=== PATIENT | male | born 1970 | race Caucasian/White ===

== ENCOUNTER 2018-05-20 15:25 | Inpatient (IN) | payer OTHER ==
--- NOTE | 2018-05-20 17:29 | GHP ---
POST ADMISSION PHYSICIAN EVALUATION AND REHABILITATION TREATMENT PLAN DATE OF ADMISSION: 05/20/2018 DATE OF EVALUATION: 05/20/2018 TIME OF EVALUATION: 1520. REFERRING FACILITY: [facility]. IMPAIRMENT GROUP: 2.1. DATE OF ONSET: 05/14/2018 REFERRING PHYSICIAN: Dr. Chavez. CONSULTING PHYSICIANS: There were none. REHABILITATION DIAGNOSES: Cognitive impairment and gait ataxia due to Wernicke encephalopathy. ETIOLOGIC DIAGNOSIS: Nontraumatic brain dysfunction. HISTORY OF PRESENT ILLNESS: This man was admitted to on 05/14/2018, with vision problems over several days, decreased upper extremity coordination, ataxic gait, and a 20 pounds weight loss. He has had a chronic alcohol use of 4-5 beers per day and 12 pack on the weekends. He was diagnosed with Wernicke's encephalopathy and hypokalemia. Additionally, he had elevated liver function tests. He was treated for alcohol withdrawal on the [place] protocol. He was treated with thiamine. He had improvement in his condition. There was urinary retention, which required straight catheterization on May 15, 2018. He was able to participate in rehabilitation therapies at the hospital and was appropriate for inpatient rehabilitation. STUDIES/LABORATORY IN THE HOSPITAL: An ammonia level was tested on 05/15/2018, and was normal at 20. Basic metabolic profile showed normal renal function and electrolytes throughout. There was hypokalemia early on in his stay. CBC was overall within normal limits, MCV was normal, platelet count was normal. Urine drug screen was negative for substances of abuse. Liver function tests on the day of admission showed elevated ALT and AST at 81 and 79. These improved somewhat by 05/16/2018, to 59 and 63. He had elevated direct bilirubin at 1.1 and total bilirubin at 2 on admission, and by 05/16/2018, these improved with direct bilirubin at 0.5 and total at 1.0. Magnesium level was normal. Phosphorus level was normal. Protime was normal at 14.6. TSH was normal at 3.24. Brain MRI showed signal abnormality involving bilateral medial thalami, periaqueductal greene matter and mammillary bodies, generalized brain volume loss greater than expected for age, and mild chronic white matter microangiopathic changes. PRECAUTIONS: He is a fall risk. ACTIVE COMORBIDITIES: He has no active tier 1, tier 2, or tier 3 comorbidities. PAST MEDICAL HISTORY: 1. Alcohol abuse and dependence. 2. Asthma. 3. History of abdominal injury as a child. PAST SURGICAL HISTORY: He has had abdominal surgery for the remote abdominal injury. PREHOSPITAL MEDICATIONS: He was taking no medications. ADMISSION MEDICATIONS: 1. Folic acid 1 mg p.o. daily. 2. Heparin 5000 units subcutaneous q.8 hours. 3. Multivitamin 1 p.o. daily. ALLERGIES: There is an allergy to penicillins and an allergy to latex, which causes a rash. SOCIAL HISTORY: He lives alone. 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 He chews tobacco. Alcohol use is as described above. He has support from his mother, friends, and neighbors. He reports there are 2 steps to enter the house and there are steps to the basement. FAMILY HISTORY: Noncontributory. REVIEW OF SYSTEMS: He reports approximately a 20 pounds weight loss with reduced appetite, but his appetite is improving. He denies symptoms of alcohol withdrawal, including no sweats or shakes. He has reduced memory for recent events. He denies pain, including no joint pain, and no swelling, cough, dyspnea, fevers or chills, nausea, vomiting, constipation, diarrhea, dysuria. Otherwise, a 10-point review of systems is negative. PHYSICAL EXAMINATION: VITAL SIGNS: Not yet available in the chart. GENERAL: This is a well-nourished, well-developed man sitting up on the edge of the bed, dressed in street clothes, cooperative, and in no acute distress. HEENT: Extraocular movements are intact. He has bilateral nystagmus with lateral gaze. Pupils are equal, round, reactive to light. Mucous membranes are moist. Dentition is in good condition. He has been uncrowded airway, Mallampati class 1. NECK: Supple. HEART: There is a regular rate and rhythm with no murmurs, rubs, or gallops. LUNGS: Clear to auscultation bilaterally. ABDOMEN : Soft, nontender, nondistended with normoactive bowel sounds and no hepatosplenomegaly. EXTREMITIES: There is no cyanosis, clubbing, or edema. NEUROLOGIC: He is alert and oriented x3. Cranial nerves 2-12 are grossly intact. There is no focal weakness. Sensation is intact to light touch. Deep tendon reflexes are 2+ bilaterally at the biceps and patella tendons and hypoactive bilaterally at the Achilles tendons. [id number] testing reveals past pointing bilaterally. He is slower on the right than on the left. He is able to arise from seated to standing with contact guard assist and cues to stand up straight. He adopts a wide stance and is unable to maintain his balance with a narrow stance. CURRENT LEVEL OF FUNCTION PER THE PRE-ADMISSION SCREEN: Regarding diet, feeding , and swallowing, he was on a regular diet with thin liquids. For grooming, he required minimal assistance. Upper body dressing required minimal assistance. Toileting required minimal assistance. History of urinary retention, resolved. Bed mobility required moderate assistance with tactile cues and voice cues. Transfers required minimal assist with voice cues. He used a front-wheeled walker. Balance required minimal assist. Endurance was fair. Gait required minimal assist of 2 with front wheeled walker. He was noted to have severe cognitive impairment in orientation, memory, insight and problem solving. He had confusion and was not oriented to place and time. He was noted to be impulsive. On today's exam, he appears to do better with regard to bed mobility, which is independent and his orientation is improved from the pre-admission screen. IMPRESSION: This is a 52-year-old man with a history of severe alcohol abuse and dependence compounded by weight loss and likely malnutrition who developed Wernicke encephalopathy. He was hospitalized with vision changes, gait changes , and confusion. He underwent alcohol withdrawal and was treated on the CIWA protocol in the hospital. He received IV thiamine. He medically stabilized over a period of several days, was participating in therapies, and was appropriate for inpatient rehabilitation. His goal is to complete a rehabilitation stay and then return to his apartment with supportive friends versus return to [place] with his mother depending on his progress. For a safe discharge, it is anticipated that he will achieve independence with eating, grooming, and bed mobility, modified independence for dressing, transfers, and for ambulation with the least restrictive device on level and unlevel surfaces. He will be oriented x3 and have insight into his deficits. He will be able to be home alone for brief periods safely. He may continue to require assistance for household management, shopping, and meal preparation. He will have therapy with physical therapy, occupational therapy and speech and language pathology for 60 minutes per day for each discipline on 5 to 7 days of the week. His expected duration of stay is 7-10 days. It is expected that upon discharge he will continue to benefit from outpatient therapy with SPRAY GUN REPAIRER. PLAN: 1. Debility with impairment of balance, mobility, and ADLs due to Wernicke's encephalopathy. There may also be an alcohol effect on the cerebellum. PT and OT to optimize mobility and activities of daily living toward the independent to modified independent level. 2. Cognitive impairment due to Wernicke encephalopathy. Unclear whether this has progressed to Korsakoff syndrome with long-term dementia. Assessment and treatment per SPRAY GUN REPAIRER. 3. History of alcohol abuse and dependence. Unclear whether there will be difficulties with maintaining sobriety after discharge. employee benefits manager can ensure that there are appropriate referrals made. 4. Tobacco dependence using chewing tobacco. We will provide a nicotine patch. 5. Weight loss and nutritional deficiencies. There will be a consult with the dietitian. Continue multivitamin, which contains thiamine, as well as folic acid. 6. Prophylaxis. He has been discharged from the hospital with heparin 5000 units subcutaneous q.8 hours for prevention of deep venous thrombosis and pulmonary embolus. He likely has been at elevated risk for DVT/pulmonary embolus due to critical illness and hospitalization. Will continue heparin until his mobility considerably improves. There is no need for an acid mio for GI protection. /[id number]/MODL MTDD
[2018-05-20] MEDS: NICOTINE 14 MG/24 HR PATCH TD SCH (18:32)
[2018-05-20] MEDS: HEPARIN 5,000 UNIT/0.5 ML INJ SC SCH (21:13)
[2018-05-21] MEDS: HEPARIN 5,000 UNIT/0.5 ML INJ SC SCH ×3 (06:36→21:15)
[2018-05-21] MEDS: NICOTINE 14 MG/24 HR PATCH TD SCH (07:46)
[2018-05-21] MEDS: MULTIVITAMINS 1 EACH TAB PO SCH (07:47)
[2018-05-21] MEDS: FOLIC ACID 1 MG TAB PO SCH (07:47)
[2018-05-21 08:57] LABS: PLATELET COUNT 286 10^3/uL (150-400)
--- NOTE | 2018-05-21 09:12 | PDOREHIP ---
Admission [facility] - Admission - 3 Day Assessment Period Admission Date/Day 1: 05/20/18 Day 2: 05/21/18 Day 3: 05/22/18 - Active Diagnoses Comorbidities and Co-existing Conditions at Admission: 14477. None of the Above - Skin Conditions Unhealed Pressure Ulcer (1 or more/Stage 1 or >)-Admission: 0. No # Stage 1 Pressure Ulcers-Admission: 0 # Stage 2 Pressure Ulcers-Admission: 0 # Stage 3 Pressure Ulcers-Admission: 0 # Stage 4 Pressure Ulcers-Admission: 0 # Unstageable Pressure Ulcers (Non-remove Dress)-Admission: 0 # Unstageable Pressure Ulcers (Slough/Eschar)-Admission: 0 # Unstageable Pressure Ulcers (Deep Tissue Injury)-Admission: 0
--- NOTE | 2018-05-21 09:12 | SOAPPROG ---
SOAP Progress Note Assessment/Plan: Assessment: Debility with impairment of balance, mobility, and ADLs due to Wernicke's encephalopathy. There may also be an alcohol effect on the cerebellum. PT and OT to optimize mobility and activities of daily living toward the independent to modified independent level. Cognitive impairment due to Wernicke encephalopathy. Unclear whether this has progressed to Korsakoff syndrome with long-term dementia. Assessment and treatment per DIESEL FLEET MECHANIC. History of alcohol abuse and dependence. Unclear whether there will be difficulties with maintaining sobriety after discharge. operations manager/coordinator can ensure that there are appropriate referrals made. Tobacco dependence using chewing tobacco. We will provide a nicotine patch. Weight loss and nutritional deficiencies. There will be a consult with the dietitian. Continue multivitamin, which contains thiamine, as well as folic acid. Prophylaxis. He has been discharged from the hospital with heparin 5000 units subcutaneous q.8 hours for prevention of deep venous thrombosis and pulmonary embolus. He likely has been at elevated risk for DVT/pulmonary embolus due to critical illness and hospitalization. Will continue heparin until his mobility considerably improves. There is no need for an acid mio for GI protection. DISPOSITION: Pending progress in therapies. Discharge to mother's home in [place] is a possibility. 05/21/18 10:39 Subjective: No complaints. Not in pain. Slept well. No cough or dyspnea, no fevers or chills. Objective: Vital Signs Temp Pulse Resp BP Pulse Ox 36.6 C 79 16 102/73 95 05/20/18 19:25 05/20/18 19:25 05/20/18 19:25 05/20/18 19:25 05/20/18 19:25 Laboratory Results 05/21/18 07:45 05/20/18 05/21/18 05/22/18 05:59 05:59 05:59 Intake Total 500 Output Total 700 350 Balance -200 -350 Physical Exam - Physical Exam General Appearance: WD/WN, alert, no apparent distress Respiratory: normal breath sounds, No crackles, No rhonchi, No wheezing Cardiac/Chest: regular rate, rhythm, No edema, No diastolic murmur, No systolic murmur Skin: normal color, warm/dry Neuro/Psych: alert, normal mood/affect, cognition abnormalities (Does not recall that I met his mother yesterday) ICD10 Worksheet Patient Problems: Problems Problem Status Onset Wernicke encephalopathy Acute
[2018-05-22] MEDS: HEPARIN 5,000 UNIT/0.5 ML INJ SC SCH (05:12)
[2018-05-22] MEDS: FOLIC ACID 1 MG TAB PO SCH (08:45)
[2018-05-22] MEDS: MULTIVITAMINS 1 EACH TAB PO SCH (08:45)
[2018-05-22] MEDS: NICOTINE 14 MG/24 HR PATCH TD SCH (08:46)
[2018-05-22] MEDS ORDERED: SENNOSIDES 1 TAB PO PRN (10:47)
--- NOTE | 2018-05-22 12:06 | SOAPPROG ---
SOAP Progress Note Assessment/Plan: Assessment: Debility with impairment of balance, mobility, and ADLs due to Wernicke's encephalopathy. There may also be an alcohol effect on the cerebellum. * Impulsive movements and ataxic gait requiring contact guard assist. Using front wheeled walker but might be safer without it. Ambulating 150 ft or more. * Continue PT and OT to optimize mobility and activities of daily living toward the independent to modified independent level. Cognitive impairment due to Wernicke encephalopathy. Unclear whether this has progressed to Korsakoff syndrome with long-term dementia. * Disoriented. Impaired reading comprehension. Poor insight. * Continue EMBLEM DRAWER IN. History of alcohol abuse and dependence. Unclear whether there will be difficulties with maintaining sobriety after discharge. luncheonette manager can ensure that there are appropriate referrals made. Tobacco dependence using chewing tobacco. We will provide a nicotine patch. Weight loss and nutritional deficiencies. There will be a consult with the dietitian. Continue multivitamin, which contains thiamine, as well as folic acid. Prophylaxis. H ambulating greater than 150 ft with therapies. Nursing to ambulate to meals. Will discontinue heparin, 05/22/2018. There is no need for an acid mio for GI protection. DISPOSITION: Pending progress in therapies. Discharge to mother's home in [place] is a possibility. 05/22/18 12:03 Subjective: No complaints. Not in pain, no cough or dyspnea, no fevers or chills. Bowels moving. Objective: Vital Signs Temp Pulse Resp BP Pulse Ox 36.7 C 99 16 95/62 L 97 05/22/18 05:21 05/22/18 08:40 05/22/18 05:21 05/22/18 08:40 05/22/18 08:40 Laboratory Results 05/21/18 07:45 05/21/18 13:10 05/21/18 05/22/18 05/23/18 05:59 05:59 05:59 Intake Total 500 960 480 Output Total 700 1325 Balance -200 -365 480 Physical Exam - Physical Exam General Appearance: WD/WN, alert, no apparent distress Respiratory: No respiratory distress, No accessory muscle use Skin: normal color, warm/dry Neuro/Psych: no motor/sensory deficits, alert, normal mood/affect, cognition abnormalities ICD10 Worksheet Patient Problems: Problems Problem Status Onset Wernicke encephalopathy Acute
[2018-05-22] MEDS: POLYETHYLENE GLYCOL 3350 17 GM PKT PO SCH (12:14)
[2018-05-23] MEDS: NICOTINE 14 MG/24 HR PATCH TD SCH (08:34)
[2018-05-23] MEDS: FOLIC ACID 1 MG TAB PO SCH (08:34)
[2018-05-23] MEDS: MULTIVITAMINS 1 EACH TAB PO SCH (08:34)
[2018-05-23] MEDS: POLYETHYLENE GLYCOL 3350 17 GM PKT PO SCH ×2 (08:38→12:35)
--- NOTE | 2018-05-23 12:06 | SOAPPROG ---
SOAP Progress Note Assessment/Plan: Assessment: Debility with impairment of balance, mobility, and ADLs due to Wernicke's encephalopathy. There may also be an alcohol effect on the cerebellum. * Supervision for bed mobility. Standby assist to contact guard assist for transfers ambulated 300 ft with standby assist and front wheeled walker, trialing a trekking pole requiring contact guard assist. Grooming and hygiene are done standing with close standby assist. Upper body dressing requires standby assist to minimal assist, lower body dressing requires setup to standby assist. Shower transfers done with contact guard assist and cues. Bathing is done with supervision. Toileting and toilet transfer are done with contact guard to standby assist. * Continue PT and OT to optimize mobility and activities of daily living toward the independent to modified independent level. Cognitive impairment due to Wernicke encephalopathy. Unclear whether this has progressed to Korsakoff syndrome with long-term dementia. * 0LOG . Deficits to spatial orientation and self-awareness. Has poor insight. Has decreased memory, new learning and executive function. Has decreased oral and written comprehension. * Continue TRAINING CONSULTANT. Impaired vision in left eye. Mother reports that her was present during his hospitalization. Ophthalmoplegia appears to have resolved completely. Advise ophthalmology referral after discharge. History of alcohol abuse and dependence. Unclear whether there will be difficulties with maintaining sobriety after discharge. network account manager can ensure that there are appropriate referrals made. Tobacco dependence using chewing tobacco. We will provide a nicotine patch. Weight loss and nutritional deficiencies. Appreciate assistance of dietitian. Has gained 1 kg. Eating well. Continue multivitamin, which contains thiamine, as well as folic acid. Prophylaxis. Ambulating greater than 150 ft with therapies. Nursing to ambulate to meals. Will discontinue heparin, 05/22/2018. There is no need for an acid mio for GI protection. DISPOSITION: Attended staffing, 15 min. Discussed with nursing, dietitian, social work case manager, PT, OT, TRAINING CONSULTANT. [place] and lives alone. Mother and other family members live in [place]. Discharge to mother's home in [place] is a possibility. Set tentative discharge date for 05/30/2018. 05/23/18 12:27 Subjective: Reports reduced ability to see out of left eye. Otherwise without complaint. Not in pain, sleeping well, no cough or dyspnea. Objective: Vital Signs Temp Pulse Resp BP Pulse Ox 36.7 C 73 16 126/84 H 96 05/23/18 08:00 05/23/18 08:00 05/23/18 08:00 05/23/18 08:00 05/23/18 08:00 Laboratory Results 05/21/18 07:45 05/21/18 13:10 05/22/18 05/23/18 05/24/18 05:59 05:59 05:59 Intake Total 960 1585 Output Total 1325 950 Balance -365 635 - Time Spent With Patient Time Spent With Patient: Greater than 35 min floor time today, including more than 50% of time in coordination of care during staffing meeting, and counseling patient and his mother. Physical Exam - Physical Exam General Appearance: WD/WN, alert, no apparent distress EENT: PERRL/EOMI, No scleral icterus (R), No scleral icterus (L), No EOM palsy, No anisocoria Respiratory: No respiratory distress, No accessory muscle use Skin: normal color, warm/dry Neuro/Psych: alert, normal mood/affect, oriented x 3, abnormal gait (slightly wide-based, occasional loss of balance, contact guard per PT.) ICD10 Worksheet Patient Problems: Problems Problem Status Onset Wernicke encephalopathy Acute
[2018-05-24] MEDS: POLYETHYLENE GLYCOL 3350 17 GM PKT PO SCH (08:57)
[2018-05-24] MEDS: FOLIC ACID 1 MG TAB PO SCH (08:58)
[2018-05-24] MEDS: MULTIVITAMINS 1 EACH TAB PO SCH (08:58)
[2018-05-24] MEDS: NICOTINE 14 MG/24 HR PATCH TD SCH (11:49)
--- NOTE | 2018-05-24 13:38 | HOSPPROG ---
Hospitalist Progress Note Assessment/Plan: Assessment: 47 yo M p/w debility 2/2 wernicke's encephalopathy Plan: # Wernicke's encephalopathy. Unclear whether he will have persistent mental status impairment w/ long-term dementia -mild leukocytosis (WBC 11,000) w/o signs of infxn, cont to monitor -cooperating w/ therapies # Ophthalmoplegia. Chronic, seemingly resolved, recommend outpt ophtho eval # Alcohol abuse and dependency disorder. Will require ongoing outpatient care Diet. Per HELPER DRIVER, encouraging weight gain PPx. Ambulating, low risk Code. Full ADD. 05/30, pending further therapy Subjective: patient reports he is feeling well, does not know exactly where he is Objective: Vital Signs Temp Pulse Resp BP Pulse Ox 36.5 C 83 16 117/84 H 97 05/24/18 08:00 05/24/18 08:00 05/24/18 08:00 05/24/18 08:00 05/24/18 08:00 Laboratory Results 05/21/18 07:45 05/21/18 13:10 05/23/18 05/24/18 05/25/18 05:59 05:59 05:59 Intake Total 1585 960 840 Output Total 950 Balance 635 960 840 - Physical Exam Constitutional: no apparent distress, not in pain, unkempt, No uncomfortable Cardiovascular: regular rate and rhythym, no murmur, rub, or gallop, No edema Respiratory: no respiratory distress, no rales or rhonchi, clear to auscultation Gastrointestinal: normoactive bowel sounds, soft, non-tender abdomen, no palpable masses, No distension Neurologic: sensation intact bilaterally, other (AAOx2 (person and time)), No AAOx3, No weakness, No asterixes Psychiatric: interacting appropriately, not anxious, thought process linear, poor insight, poor memory, No agitated ICD10 Worksheet Patient Problems: Problems Problem Status Onset Wernicke encephalopathy Acute
[2018-05-25] MEDS: FOLIC ACID 1 MG TAB PO SCH (08:22)
[2018-05-25] MEDS: MULTIVITAMINS 1 EACH TAB PO SCH (08:22)
[2018-05-25] MEDS: POLYETHYLENE GLYCOL 3350 17 GM PKT PO SCH (08:22)
[2018-05-25] MEDS: NICOTINE 14 MG/24 HR PATCH TD SCH (08:23)
--- NOTE | 2018-05-25 23:37 | HOSPPROG ---
Hospitalist Progress Note Assessment/Plan: Assessment: 47 yo M p/w debility 2/2 wernicke's encephalopathy Plan: # Wernicke's encephalopathy. Unclear whether he will have persistent mental status impairment w/ long-term dementia -mild leukocytosis (WBC 11,000) on presentation w/o signs of infxn, cont to monitor for fever or development of infxn sx -cooperating w/ therapies -patient is considering how his life will look after discharge, encouraged him to participate w/ care conference decisions (he lives in [facility] and would like to be connected w/ medical care in that locale, if that is where he will receive care s/p discharge) # Ophthalmoplegia. Chronic, seemingly resolved, recommend outpt ophtho eval # Alcohol abuse and dependency disorder. Will require ongoing outpatient care Diet. Per CONSUMER CREDIT COUNSELOR, encouraging weight gain PPx. Ambulating, low risk Code. Full ADD. 05/30, pending further therapy Subjective: has had BM, keeping notes of his activities/chores Objective: Vital Signs Temp Pulse Resp BP Pulse Ox 36.6 C 79 16 108/71 99 05/25/18 19:42 05/25/18 19:42 05/25/18 19:42 05/25/18 19:42 05/25/18 19:42 Laboratory Results 05/21/18 07:45 05/21/18 13:10 05/24/18 05/25/18 05/26/18 05:59 05:59 05:59 Intake Total 960 2550 1700 Output Total 1475 400 Balance 960 1075 1300 - Physical Exam Constitutional: no apparent distress, appears nourished, not in pain, No uncomfortable Cardiovascular: regular rate and rhythym, no murmur, rub, or gallop Respiratory: no respiratory distress, no rales or rhonchi, clear to auscultation Gastrointestinal: normoactive bowel sounds, soft, non-tender abdomen, No distension Neurologic: AAOx3, sensation intact bilaterally, No weakness Psychiatric: interacting appropriately, not anxious, thought process linear, flat affect, poor insight, poor memory ICD10 Worksheet Patient Problems: Problems Problem Status Onset Wernicke encephalopathy Acute
[2018-05-26] MEDS: NICOTINE 14 MG/24 HR PATCH TD SCH (08:56)
[2018-05-26] MEDS: POLYETHYLENE GLYCOL 3350 17 GM PKT PO SCH (08:56)
[2018-05-26] MEDS: MULTIVITAMINS 1 EACH TAB PO SCH (08:57)
[2018-05-26] MEDS: FOLIC ACID 1 MG TAB PO SCH (08:57)
--- NOTE | 2018-05-26 12:49 | SOAPPROG ---
SOAP Progress Note Assessment/Plan: Assessment: Debility with impairment of balance, mobility, and ADLs due to Wernicke's encephalopathy. There may also be an alcohol effect on the cerebellum. * Initial functional independence measure 82 on 05/13/2018. Supervision for bed mobility. Standby assist to contact guard assist for transfers. Ambulated 300 ft with standby assist and front wheeled walker, trialing a trekking pole requiring contact guard assist. Grooming and hygiene are done standing with close standby assist. Upper body dressing requires standby assist to minimal assist, lower body dressing requires setup to standby assist. Shower transfers done with contact guard assist and cues. Bathing is done with supervision. Toileting and toilet transfer are done with contact guard to standby assist. * Has subsequently ambulated 500 ft inside and out on level and unlevel terrain with trekking pole. * Continue PT and OT to optimize mobility and activities of daily living toward the independent to modified independent level. Cognitive impairment due to Wernicke encephalopathy. Unclear whether this has progressed to Korsakoff syndrome with long-term dementia. * 0LOG . Deficits to spatial orientation and self-awareness. Has poor insight. Has decreased memory, new learning and executive function. Has decreased oral and written comprehension. 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 Impaired vision in left eye. Mother reports that her was present during his hospitalization. Ophthalmoplegia appears to have resolved completely. Advise ophthalmology referral after discharge. History of alcohol abuse and dependence. Unclear whether there will be difficulties with maintaining sobriety after discharge. store manager can ensure that there are appropriate referrals made. Tobacco dependence using chewing tobacco. We will provide a nicotine patch. Weight loss and nutritional deficiencies. Appreciate assistance of dietitian. Gaining weight. Eating well. Continue multivitamin, which contains thiamine, as well as folic acid. Prophylaxis. Ambulating greater than 150 ft with therapies. Nursing to ambulate to meals. Will discontinue heparin, 05/22/2018. There is no need for an acid mio for GI protection. DISPOSITION: Owns a home in [place] and lives alone. Mother and other family members live in [place]. Discharge to mother's home in [place] is a possibility. Set tentative discharge date for 05/30/2018. 05/26/18 12:44 Subjective: No complaints. Very talkative. Focused about details of his schedule today and questions about return to work after discharge. Objective: Vital Signs Temp Pulse Resp BP Pulse Ox 36.5 C 68 15 102/68 98 05/26/18 07:01 05/26/18 07:01 05/26/18 07:01 05/26/18 07:01 05/26/18 07:01 Laboratory Results 05/21/18 07:45 05/21/18 13:10 05/25/18 05/26/18 05/27/18 05:59 05:59 05:59 Intake Total 2550 1900 Output Total 1475 800 Balance 1075 1100 Physical Exam - Physical Exam General Appearance: WD/WN, alert, no apparent distress Respiratory: No accessory muscle use, No decreased breath sounds Skin: normal color, warm/dry Neuro/Psych: alert, normal mood/affect ICD10 Worksheet Patient Problems: Problems Problem Status Onset Wernicke encephalopathy Acute
[2018-05-27] MEDS: MULTIVITAMINS 1 EACH TAB PO SCH (08:20)
[2018-05-27] MEDS: NICOTINE 14 MG/24 HR PATCH TD SCH (08:20)
[2018-05-27] MEDS: POLYETHYLENE GLYCOL 3350 17 GM PKT PO SCH (08:21)
[2018-05-27] MEDS: FOLIC ACID 1 MG TAB PO SCH (08:21)
--- NOTE | 2018-05-27 14:44 | SOAPPROG ---
SOAP Progress Note Assessment/Plan: Assessment: Debility with impairment of balance, mobility, and ADLs due to Wernicke's encephalopathy. There may also be an alcohol effect on the cerebellum. * Initial functional independence measure 82 on 05/23/2018. Supervision for bed mobility. Standby assist to contact guard assist for transfers. Ambulated 300 ft with standby assist and front wheeled walker, trialing a trekking pole requiring contact guard assist. Grooming and hygiene are done standing with close standby assist. Upper body dressing requires standby assist to minimal assist, lower body dressing requires setup to standby assist. Shower transfers done with contact guard assist and cues. Bathing is done with supervision. Toileting and toilet transfer are done with contact guard to standby assist. * Has subsequently ambulated 500 ft inside and out on level and unlevel terrain with trekking pole. * Continue PT and OT to optimize mobility and activities of daily living toward the independent to modified independent level. Cognitive impairment due to Wernicke encephalopathy. Unclear whether this has progressed to Korsakoff syndrome with long-term dementia. * 0LOG . Deficits to spatial orientation and self-awareness. Has poor insight. Has decreased memory, new learning and executive function but improving and demonstrating improved new learning. Has decreased oral and written comprehension. 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 Impaired vision in left eye. Mother reports that her was present during his hospitalization. Ophthalmoplegia appears to have resolved completely. Advise ophthalmology referral after discharge. History of alcohol abuse and dependence. Unclear whether there will be difficulties with maintaining sobriety after discharge. visual merchandise manager can ensure that there are appropriate referrals made. Tobacco dependence using chewing tobacco. We will provide a nicotine patch. Weight loss and nutritional deficiencies. Appreciate assistance of dietitian. Gaining weight. Eating well. Continue multivitamin, which contains thiamine, as well as folic acid. Prophylaxis. Ambulating greater than 150 ft with therapies. Nursing to ambulate to meals. Will discontinue heparin, 05/22/2018. There is no need for an acid mio for GI protection. DISPOSITION: Owns a home in [place] and lives alone. Mother and other family members live in [place]. Plans to discharge home. As new learning is improving and cognitive impairment is improving, will have further discussions with his insurer, [employer], regarding placement in alcohol rehabilitation facility after discharge. Set tentative discharge date for 05/30/2018. 05/27/18 14:41 Subjective: No complaints. Sleeping well. Not in pain. No fevers or chills, no cough or dyspnea. Objective: Vital Signs Temp Pulse Resp BP Pulse Ox 36.6 C 16 L 18 113/87 H 96 05/27/18 08:00 05/27/18 08:00 05/27/18 08:00 05/27/18 08:00 05/27/18 08:00 Laboratory Results 05/21/18 07:45 05/21/18 13:10 05/26/18 05/27/18 05/28/18 05:59 05:59 05:59 Intake Total 1900 240 Output Total 800 Balance 1100 240 Physical Exam - Physical Exam General Appearance: WD/WN, alert, no apparent distress Respiratory: No respiratory distress, No accessory muscle use Skin: normal color, warm/dry Neuro/Psych: alert, normal mood/affect, oriented x 3, other (Ambulating independently in the [place] with physical therapy using a tracking pole in the left side with a slightly wide gait and a step through pattern.) ICD10 Worksheet Patient Problems: Problems Problem Status Onset Wernicke encephalopathy Acute
[2018-05-28] MEDS: NICOTINE 14 MG/24 HR PATCH TD SCH (08:27)
[2018-05-28] MEDS: FOLIC ACID 1 MG TAB PO SCH (08:28)
[2018-05-28] MEDS: POLYETHYLENE GLYCOL 3350 17 GM PKT PO SCH (08:28)
[2018-05-28] MEDS: MULTIVITAMINS 1 EACH TAB PO SCH (08:28)
--- NOTE | 2018-05-28 09:44 | SOAPPROG ---
SOAP Progress Note Assessment/Plan: Assessment: Debility with impairment of balance, mobility, and ADLs due to Wernicke's encephalopathy. There may also be an alcohol effect on the cerebellum. * Initial functional independence measure 82 on 05/23/2018. Supervision for bed mobility. Standby assist to contact guard assist for transfers. Ambulated 300 ft with standby assist and front wheeled walker, trialing a trekking pole requiring contact guard assist. Grooming and hygiene are done standing with close standby assist. Upper body dressing requires standby assist to minimal assist, lower body dressing requires setup to standby assist. Shower transfers done with contact guard assist and cues. Bathing is done with supervision. Toileting and toilet transfer are done with contact guard to standby assist. * Has subsequently ambulated 500 ft inside and out on level and unlevel terrain with trekking pole. * Continue PT and OT to optimize mobility and activities of daily living toward the independent to modified independent level. Cognitive impairment due to Wernicke encephalopathy. Unclear whether this has progressed to Korsakoff syndrome with long-term dementia. * 0LOG . Deficits to spatial orientation and self-awareness. Has poor insight. Has decreased memory, new learning and executive function but improving and demonstrating improved new learning. Has decreased oral and written comprehension. * MOCA improved from to 22/30 on 05/27/2018, with improved memory scores. * Continue HUMAN RESOURCES TECHNICIAN. Impaired vision in left eye. Mother reports that her was present during his hospitalization. Ophthalmoplegia appears to have resolved completely. Advise ophthalmology referral after discharge. History of alcohol abuse and dependence. He desires alcohol rehabilitation after discharge. Tobacco dependence using chewing tobacco. We will provide a nicotine patch. Weight loss and nutritional deficiencies. Appreciate assistance of dietitian. Gaining weight. Eating well. Continue multivitamin, which contains thiamine, as well as folic acid. Prophylaxis. Ambulating greater than 150 ft with therapies. Nursing to ambulate to meals. Will discontinue heparin, 05/22/2018. There is no need for an acid mio for GI protection. DISPOSITION: Owns a home in [place] and lives alone. Mother and other family members live in [place]. Plans to discharge home. As new learning is improving and cognitive impairment is improving, will have further discussions with his insurer, [employer], regarding placement in alcohol rehabilitation facility after discharge. Set tentative discharge date for 05/30/2018. 05/28/18 09:42 Subjective: Aware of difficulty balancing with tandem gait. Working on balance with occupational therapy, ambulating along wall with left hand on rail intermittently. Not in pain, no cough or dyspnea, no fevers or chills. Good appetite. Objective: Vital Signs Temp Pulse Resp BP Pulse Ox 36.9 C 97 16 103/69 94 05/27/18 19:47 05/27/18 19:47 05/27/18 19:47 05/27/18 19:47 05/27/18 19:47 Laboratory Results 05/21/18 07:45 05/21/18 13:10 05/27/18 05/28/18 05/29/18 05:59 05:59 05:59 Intake Total 2240 Output Total 250 Balance 1990 Physical Exam - Physical Exam General Appearance: WD/WN, alert, no apparent distress Respiratory: No respiratory distress, No accessory muscle use Skin: normal color, warm/dry Neuro/Psych: alert, normal mood/affect, oriented x 3, abnormal gait (Balance difficulties with tandem gait, needing to use rail along wall.) ICD10 Worksheet Patient Problems: Problems Problem Status Onset Wernicke encephalopathy Acute
[2018-05-29] MEDS: POLYETHYLENE GLYCOL 3350 17 GM PKT PO SCH (07:39)
[2018-05-29] MEDS: NICOTINE 14 MG/24 HR PATCH TD SCH (07:39)
[2018-05-29] MEDS: FOLIC ACID 1 MG TAB PO SCH (07:39)
[2018-05-29] MEDS: MULTIVITAMINS 1 EACH TAB PO SCH (07:39)
--- NOTE | 2018-05-29 15:12 | SOAPPROG ---
SOAP Progress Note Assessment/Plan: Assessment: Debility with impairment of balance, mobility, and ADLs due to Wernicke's encephalopathy. There may also be an alcohol effect on the cerebellum. * Initial functional independence measure 82 on 05/23/2018, improved to 102 as of 04/29/2018. Independent in the room and on the unit 24 hr a day using a tracking pole. Climbed and descended stairs with 1 rail and supervision. Has ambulated greater than 1500 ft independently with a trekking pole outside over curbs and ramps and uneven terrain. He is independent with grooming and hygiene , upper body and lower body dressing and toileting. He requires supervision for kitchen and laundry tasks. * Continue PT and OT to optimize mobility and activities of daily living toward the independent to modified independent level. Cognitive impairment due to Wernicke encephalopathy. Unclear whether this has progressed to Korsakoff syndrome with long-term dementia. * 0LOG /30, improved to 25/30 which is a passing score on 05/29/2018. Continued areas in self-awareness and insight. * MOCA improved from 21/30 to 22/30 on 05/27/2018, with improved memory scores. * Continues to have impairments to executive function, problem solving, and insight. 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 Impaired vision in left eye. Mother reports that her was present during his hospitalization. Ophthalmoplegia appears to have resolved completely. Advise ophthalmology referral after discharge. History of alcohol abuse and dependence. He desires alcohol rehabilitation after discharge. Tobacco dependence using chewing tobacco. We will provide a nicotine patch. Weight loss and nutritional deficiencies. Appreciate assistance of dietitian. Gaining weight. Eating well. Continue multivitamin, which contains thiamine, as well as folic acid. Prophylaxis. Ambulating greater than 150 ft with therapies. Nursing to ambulate to meals. Will discontinue heparin, 05/22/2018. There is no need for an acid mio for GI protection. DISPOSITION: Attended staffing, 15 min. Discussed with case management, nursing, dietitian, PT, OT, BEAN PICKER MACHINE OPERATOR. Discussed his cognitive status as well as his progress in therapies with [facility] psychiatrist Dr. Naga Swartz. Owns a home in [place] and lives alone. Mother and other family members live in [place]; mother is staying in his home through June. Tentative plan is for him to enter an alcohol rehabilitation program at [facility] in [facility] upon discharge from inpatient rehabilitation. He will visit for a day program to assess his appropriateness in the next several days. Tentative discharge date is set for 06/03/2018. 05/29/18 15:06 Subjective: No complaints. Discussed discharge disposition. Objective: Vital Signs Temp Pulse Resp BP Pulse Ox 37.2 C 83 16 112/73 96 05/29/18 07:37 05/29/18 07:37 05/29/18 07:37 05/29/18 07:37 05/29/18 07:37 Laboratory Results 05/21/18 07:45 05/21/18 13:10 05/28/18 05/29/18 05/30/18 05:59 05:59 05:59 Intake Total 2240 1810 840 Output Total 250 300 Balance 1990 1810 540 - Time Spent With Patient Time Spent With Patient: Greater than 35 min floor time today, including more than 50% of time in coordination of care during staffing meeting and in discussion with [place] psychiatrist Dr. Swartz, and counseling patient. Physical Exam - Physical Exam General Appearance: WD/WN, alert, no apparent distress Respiratory: No respiratory distress, No accessory muscle use Skin: normal color, warm/dry Neuro/Psych: alert, normal mood/affect, oriented x 3 ICD10 Worksheet Patient Problems: Problems Problem Status Onset Wernicke encephalopathy Acute
[2018-05-30] MEDS: MULTIVITAMINS 1 EACH TAB PO SCH (08:23)
[2018-05-30] MEDS: FOLIC ACID 1 MG TAB PO SCH (08:23)
[2018-05-30] MEDS: POLYETHYLENE GLYCOL 3350 17 GM PKT PO SCH (08:24)
[2018-05-30] MEDS: NICOTINE 14 MG/24 HR PATCH TD SCH (08:24)
--- NOTE | 2018-05-30 13:11 | SOAPPROG ---
SOAP Progress Note Assessment/Plan: Assessment: Debility with impairment of balance, mobility, and ADLs due to Wernicke's encephalopathy. There may also be an alcohol effect on the cerebellum. * Initial functional independence measure 82 on 05/23/2018. Supervision for bed mobility. Standby assist to contact guard assist for transfers. Ambulated 300 ft with standby assist and front wheeled walker, trialing a trekking pole requiring contact guard assist. Grooming and hygiene are done standing with close standby assist. Upper body dressing requires standby assist to minimal assist, lower body dressing requires setup to standby assist. Shower transfers done with contact guard assist and cues. Bathing is done with supervision. Toileting and toilet transfer are done with contact guard to standby assist. * Has subsequently ambulated 500 ft inside and out on level and unlevel terrain with trekking pole. * Continue PT and OT to optimize mobility and activities of daily living toward the independent to modified independent level. Cognitive impairment due to Wernicke encephalopathy. Unclear whether this has progressed to Korsakoff syndrome with long-term dementia. * 0LOG . Deficits to spatial orientation and self-awareness. Has poor insight. Has decreased memory, new learning and executive function but improving and demonstrating improved new learning. Has decreased oral and written comprehension. * MOCA improved from to 22/30 on 05/27/2018, with improved memory scores. * Continue COMPUTER OPERATOR. Impaired vision in left eye. Mother reports that her was present during his hospitalization. Ophthalmoplegia appears to have resolved completely. Advise ophthalmology referral after discharge. History of alcohol abuse and dependence. He desires alcohol rehabilitation after discharge. Tobacco dependence using chewing tobacco. We will provide a nicotine patch. Weight loss and nutritional deficiencies. Appreciate assistance of dietitian. Gaining weight. Eating well. Continue multivitamin, which contains thiamine. No indication to continue supplementation of folic acid beyond what is contained in the multivitamin. Will discontinue folic acid starting 2017.. Prophylaxis. Ambulating greater than 150 ft with therapies. Nursing to ambulate to meals. Discontinued heparin, 05/22/2018. There is no need for an acid mio for GI protection. DISPOSITION: Owns a home in [place] and lives alone. Mother and other family members live in [place]. Plans to discharge home. Discussed with [facility] psychiatrist Dr. Naga Swartz, 05/29/2018. Has had considerable improvement in cognitive function since he was hospitalized and is now appropriate for inpatient alcohol rehabilitation. He is being referred to a 2 week program at [facility] in [facility]. Plan for discharge on 06/03/2018. 05/30/18 13:09 Subjective: Wishes to discuss vitamins. Otherwise without complaints. Objective: Vital Signs Temp Pulse Resp BP Pulse Ox 98.6 C H 96 17 100/73 100 05/30/18 08:19 05/30/18 08:19 05/30/18 08:19 05/30/18 08:19 05/30/18 08:19 Laboratory Results 05/21/18 07:45 05/21/18 13:10 05/29/18 05/30/18 05/31/18 05:59 05:59 05:59 Intake Total 1810 2090 360 Output Total 300 Balance 1810 1790 360 Physical Exam - Physical Exam General Appearance: WD/WN, alert, no apparent distress Respiratory: No respiratory distress, No accessory muscle use Skin: normal color, warm/dry Neuro/Psych: alert, normal mood/affect, oriented x 3, abnormal gait (Wide based , step through pattern, normal pace, trekking pole in right hand.) ICD10 Worksheet Patient Problems: Problems Problem Status Onset Wernicke encephalopathy Acute
[2018-05-31] MEDS: FOLIC ACID 1 MG TAB PO SCH (08:45)
[2018-05-31] MEDS: POLYETHYLENE GLYCOL 3350 17 GM PKT PO SCH (08:45)
[2018-05-31] MEDS: NICOTINE 14 MG/24 HR PATCH TD SCH (08:45)
[2018-05-31] MEDS: MULTIVITAMINS 1 EACH TAB PO SCH (08:45)
--- NOTE | 2018-05-31 09:40 | SOAPPROG ---
SOAP Progress Note Assessment/Plan: Assessment: Debility with impairment of balance, mobility, and ADLs due to Wernicke's encephalopathy. There may also be an alcohol effect on the cerebellum. * Initial functional independence measure 82 on 05/23/2018. Supervision for bed mobility. Standby assist to contact guard assist for transfers. Ambulated 300 ft with standby assist and front wheeled walker, trialing a trekking pole requiring contact guard assist. Grooming and hygiene are done standing with close standby assist. Upper body dressing requires standby assist to minimal assist, lower body dressing requires setup to standby assist. Shower transfers done with contact guard assist and cues. Bathing is done with supervision. Toileting and toilet transfer are done with contact guard to standby assist. * Has subsequently ambulated 500 ft inside and out on level and unlevel terrain with trekking pole. * Continue PT and OT to optimize mobility and activities of daily living toward the independent to modified independent level. * HE WOULD BENEFIT FROM ADVANCE BALANCE TRAINING AND ADVANCE WORK WITH LOWER EXTREMITY PROPRIOCEPTIVE SKILLS WITH COMPENSATORY TECHNIQUES AND STRATEGIES Cognitive impairment due to Wernicke encephalopathy. Unclear whether this has progressed to Korsakoff syndrome with long-term dementia. * 0LOG . Deficits to spatial orientation and self-awareness. Has poor insight. Has decreased memory, new learning and executive function but improving and demonstrating improved new learning. Has decreased oral and written comprehension. * MOCA improved from to 22/30 on 05/27/2018, with improved memory scores. 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 Impaired vision in left eye. Mother reports that her was present during his hospitalization. Ophthalmoplegia appears to have resolved completely. Advise ophthalmology referral after discharge. History of alcohol abuse and dependence. He desires alcohol rehabilitation after discharge. HE WILL ATTEND A 2 WEEK ALCOHOL REHABILITATION PROGRAM AT [facility] 06/02/2017 Tobacco dependence using chewing tobacco. We will provide a nicotine patch. Weight loss and nutritional deficiencies. Appreciate assistance of dietitian. Gaining weight. Eating well. Continue multivitamin, which contains thiamine. No indication to continue supplementation of folic acid beyond what is contained in the multivitamin. Will discontinue folic acid starting 05/31/2018. Prophylaxis. Ambulating greater than 150 ft with therapies. Nursing to ambulate to meals. Discontinued heparin, 05/22/2018. There is no need for an acid mio for GI protection. DISPOSITION: Owns a home in [place] and lives alone. Mother and other family members live in [place]. Plans to discharge home. Discussed with [place] psychiatrist Dr. Naga Swartz, 05/29/2018. Has had considerable improvement in cognitive function since he was hospitalized and is now appropriate for inpatient alcohol rehabilitation. He is being referred to a [address] [facility] in [facility]. Plan for discharge on 06/03/2018. Plan: 05/31/18 09:38 Subjective: NO COMPLAINTS THIS MORNING. HE REPORTS THIS IS THE 1ST DAY THAT HE FELT REALLY GOOD. REPORTS DECREASED BALANCE CONTINUES TO BE AN ISSUE. DENIES FEELING DIZZY OR LIGHTHEADED. Objective: Vital Signs Temp Pulse Resp BP Pulse Ox 36.6 C 99 18 112/73 95 05/31/18 06:18 05/31/18 06:18 05/31/18 06:18 05/31/18 06:18 05/31/18 06:18 Laboratory Results 05/21/18 07:45 05/21/18 13:10 05/30/18 05/31/18 06/01/18 05:59 05:59 05:59 Intake Total 0 1800 Output Total 300 Balance 1790 1800 Physical Exam - Physical Exam General Appearance: WD/WN, alert, no apparent distress EENT: scleral icterus (L), other Neck: tender lateral (MILD SCLERAL ICTERUS) Respiratory: lungs clear, normal breath sounds Abdomen: normal bowel sounds, non-tender, soft Skin: warm/dry Extremities: swelling, No Laney's sign (NO ASTERIXIS. GROSSLY NORMAL UPPER AND LOWER EXTREMITY MOTOR EXAM) ICD10 Worksheet Patient Problems: Problems Problem Status Onset Wernicke encephalopathy Acute
[2018-06-01] MEDS: POLYETHYLENE GLYCOL 3350 17 GM PKT PO SCH (08:19)
[2018-06-01] MEDS: FOLIC ACID 1 MG TAB PO SCH (08:19)
[2018-06-01] MEDS: NICOTINE 14 MG/24 HR PATCH TD SCH (08:19)
[2018-06-01] MEDS: MULTIVITAMINS 1 EACH TAB PO SCH (08:19)
--- NOTE | 2018-06-01 09:29 | SOAPPROG ---
SOAP Progress Note Assessment/Plan: Assessment: Debility with impairment of balance, mobility, and ADLs due to Wernicke's encephalopathy. There may also be an alcohol effect on the cerebellum. * Initial functional independence measure 82 on 05/23/2018. Supervision for bed mobility. Standby assist to contact guard assist for transfers. Ambulated 300 ft with standby assist and front wheeled walker, trialing a trekking pole requiring contact guard assist. Grooming and hygiene are done standing with close standby assist. Upper body dressing requires standby assist to minimal assist, lower body dressing requires setup to standby assist. Shower transfers done with contact guard assist and cues. Bathing is done with supervision. Toileting and toilet transfer are done with contact guard to standby assist. * Has subsequently ambulated 500 ft inside and out on level and unlevel terrain with trekking pole. * Continue PT and OT to optimize mobility and activities of daily living toward the independent to modified independent level. * HE WOULD BENEFIT FROM ADVANCE BALANCE TRAINING AND ADVANCE WORK WITH LOWER EXTREMITY PROPRIOCEPTIVE SKILLS WITH COMPENSATORY TECHNIQUES AND STRATEGIES Cognitive impairment due to Wernicke encephalopathy. Unclear whether this has progressed to Korsakoff syndrome with long-term dementia. * 0LOG . Deficits to spatial orientation and self-awareness. Has poor insight. Has decreased memory, new learning and executive function but improving and demonstrating improved new learning. Has decreased oral and written comprehension. * MOCA improved from to 22/30 on 05/27/2018, with improved memory scores. 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 Impaired vision in left eye. . Ophthalmoplegia appears to have resolved completely. Advise ophthalmology referral after discharge. History of alcohol abuse and dependence. He desires alcohol rehabilitation after discharge. HE WILL ATTEND A 2 WEEK ALCOHOL REHABILITATION PROGRAM AT [facility] BEGIN[facility]ING 06/02/2017 Tobacco dependence using chewing tobacco. We will provide a nicotine patch. Weight loss and nutritional deficiencies. Appreciate assistance of dietitian. Gaining weight. Eating well. Continue multivitamin, which contains thiamine. No indication to continue supplementation of folic acid beyond what is contained in the multivitamin. Will discontinue folic acid starting 05/31/2018. Prophylaxis. Ambulating greater than 150 ft with therapies. Nursing to ambulate to meals. Discontinued heparin, 05/22/2018. There is no need for an acid mio for GI protection. DISPOSITION: Owns a home in [place] and lives alone. Mother and other family members live in [place]. Plans to discharge home. Discussed with [place] psychiatrist Dr. Naga Swartz, 05/29/2018. Has had considerable improvement in cognitive function since he was hospitalized and is now appropriate for inpatient alcohol rehabilitation. He is being referred to a 2 week program at [facility] in [facility]. Plan for discharge on 06/03/2018. APPARENTLY PATIENT IS BEING DISCHARGED AT 6:30 A.M. TOMORROW AND WILL CHECK DISCHARGE ORDER TO MAKE SURE THIS IS CORRECT. Plan: 05/31/18 09:38 06/01/18 09:28 Subjective: NO COMPLAINTS PER PATIENT OR NURSING STAFF. HE REPORTS HE IS READY AN ANTICIPATING HIS DISCHARGE FOR TOMORROW MORNING. Objective: Vital Signs Temp Pulse Resp BP Pulse Ox 36.8 C 92 16 111/71 97 06/01/18 06:38 06/01/18 06:38 06/01/18 06:38 06/01/18 06:38 06/01/18 06:38 Laboratory Results 05/21/18 07:45 05/21/18 13:10 05/31/18 06/01/18 06/02/18 05:59 05:59 05:59 Intake Total 1800 2500 450 Output Total 300 Balance 1800 2500 150 Physical Exam - Physical Exam General Appearance: WD/WN, no apparent distress Respiratory: lungs clear, normal breath sounds Abdomen: normal bowel sounds, non-tender, soft Neuro/Psych: alert, normal mood/affect, oriented x 3 ICD10 Worksheet Patient Problems: Problems Problem Status Onset Wernicke encephalopathy Acute
[2018-06-01 18:51] VITALS: BP 114/73
[2018-06-02] MEDS: NICOTINE 14 MG/24 HR PATCH TD SCH (06:00)
--- NOTE | 2018-06-02 14:45 | PDOREHIP ---
Admission [facility] - Admission - 3 Day Assessment Period Admission Date/Day 1: 05/20/18 Day 2: 05/21/18 Day 3: 05/22/18 - Active Diagnoses Comorbidities and Co-existing Conditions at Admission: 16273. None of the Above Discharge [facility] - Discharge - 3 Day Assessment Period 2 Days Prior to Anticipated Discharge Date: 05/31/18 1 Day Prior to Anticipated Discharge Date: 06/01/18 Anticipated Discharge Date: 06/02/18 - Discharge Skin Conditions Unhealed Pressure Ulcer (1 or more/Stage 1 or >)-Discharge: 0. No # Stage 1 Pressure Ulcers-Discharge: 0 # Stage 2 Pressure Ulcers-Discharge: 0 # of These Stage 2 Pressure Ulcers Present on Admission: 0 # Stage 3 Pressure Ulcers-Discharge: 0 # of These Stage 3 Pressure Ulcers Present on Admission: 0 # Stage 4 Pressure Ulcers-Discharge: 0 # of These Stage 4 Pressure Ulcers Present on Admission: 0 # Unstageable Pressure Ulcers (Non-remove Dress)-Discharge: 0 # These Unstageable Pressure Ulcers (NRD)-Present on Admit: 0 # Unstageable Pressure Ulcers (Slough/Eschar)-Discharge: 0 # These Unstageable Pressure Ulcers(Slough) Present on Admit: 0 # Unstageable Pressure Ulcers (Deep Tissue Injury)-Discharge: 0 # These Unstageable Pressure Ulcers (DTI) Present on Admit: 0
--- NOTE | 2018-06-02 15:11 | GDS ---
ADMITTING DIAGNOSIS: Wernicke encephalopathy with cognitive and balance impairment. DISCHARGE DIAGNOSIS: Wernicke encephalopathy with cognitive and balance impairment. OTHER DISCHARGE DIAGNOSES: 1. Impaired vision of the left eye. 2. History of alcohol abuse and dependence. COMPLICATIONS: There were none. PROCEDURES: There were none. CONSULTATIONS: There were none. HISTORY AND HOSPITAL COURSE: [facility]. He had presented there on 05/14/2018, with vision problems, decreased upper extremity coordination, ataxic gait, and a 20 pounds weight loss. He had ophthalmoplegia. He had a history of alcohol abuse and reduced food intake. He was diagnosed with Wernicke encephalopathy and treated with thiamine. He had improvement. He was also treated for alcohol withdrawal, and he had significant cognitive impairment during his hospitalization with a Roxie Cognitive Assessment score of 6/30. He did well in rehabilitation. He regained functional independence and was able to ambulate independently on the unit using a trekking pole. He ambulated more than 500 feet inside and outside on level and unlevel terrain. He had considerable improvement in cognition. The Tito Cognitive Assessment score had improved from 6/30 during his hospitalization to 22/30 as of 05/27/2018, with markedly improved memory scores. He continued to have deficits to executive function and to oral and written comprehension. He complained of impaired vision in the left eye. His mother reported that it was present during his hospitalization. His ophthalmoplegia had resolved completely. Regarding history of alcohol abuse and dependence, he desired to be discharged to an inpatient alcohol rehabilitation facility. There was discussion with [facility], Dr. Naga Swartz. He had initially been considered to not be a candidate for alcohol rehabilitation due to his significant cognitive impairment while he was hospitalized, but after discussing his marked cognitive improvement, he was approved by Dr. Swartz to go to inpatient alcohol rehabilitation at [facility] in [place], [place]. DISCHARGE PLAN: Disposition is to [facility] for inpatient alcohol rehabilitation. CONDITION: Good. DIET: Regular. ACTIVITY: Ad abimael, but he should not be driving. MEDICATIONS ON DISCHARGE: 1. Nicotine patch 14 mg to be changed daily. 2. Multivitamin daily. 3. Polyethylene glycol 17 g p.o. daily. ISSUES TO BE ADDRESSED AT FOLLOWUP: 1. Mobility and cognitive issues. He can have continued assessment and possible treatment while at [facility] and consider continuing speech and language pathology treatment per [facility] after his discharge. 2. Alcohol abuse and dependence to be treated at [facility] and then referred to [facility] substance abuse treatment after his discharge. 3. Tobacco dependence syndrome. Advised smoking cessation. Continue nicotine patch. 4. History of Wernicke encephalopathy. He will be getting adequate thiamine from his daily multivitamin and he is not at risk for a recurrence if he can maintain sobriety from alcohol. 5. Visual impairment left eye. Recommend follow-up with folded cloth taper or steelscope operator. Copy requested to: Marilou Scott [facility] Attention: Attending /[id number]/MODL MTDD
== END 2018-06-02 06:25 | DRG 641 ==
LOC: BREH 15:25
PROVIDERS: ADMIT Internal Medicine; ATTEND Internal Medicine
DX: E51.2 Wernicke's encephalopathy (principal); G31.84 Mild cognitive impairment of uncertain or unknown etiology; R26.0 Ataxic gait; F10.221 Alcohol dependence with intoxication delirium; J45.909 Unspecified asthma, uncomplicated; F17.200 Nicotine dependence, unspecified, uncomplicated; R63.4 Abnormal weight loss; H53.19 Other subjective visual disturbances
CPT/HCPCS: 92507-GN; 92523-GN; 97110-GO; 97110-GP; 97112-GP; 97116-GP; 97162-GP; 97166-GO; 97530-GO; 97530-GP; 97535-GO; 97537-GO; G0515-GO; J1644